=== PATIENT | female | born 2000 | race Caucasian/White ===

== ENCOUNTER 2023-12-01 19:16 | Emergency (ER) | payer OTHER, SELFPAY ==
--- NOTE | 2023-12-01 19:36 | ED_ITS ---
HPI - General Adult General Chief complaint: Abdominal Pain Stated complaint: abd pain Time Seen by Provider: 12/01/23 21:59 Source: patient Mode of arrival: ambulatory History of Present Illness HPI narrative: 23-year-old female who presents with 2 days of mid abdominal discomfort that she states radiates to the right side and she mistook for hunger pains and has been associated with nausea but otherwise no fever, chills or dysuria. Patient reports that she just completed her menstrual cycle. Related Data Previous Rx's Medication Instructions Recorded omeprazole 20 mg capsule,delayed 20 mg PO DAILY #30 caps 12/01/23 release Allergies Allergy/AdvReac Type Severity Reaction Status Date / Time No Known Allergies Allergy Verified 12/01/23 19:36 Review of Systems 2 Review of Systems: Pertinent positives and negatives as stated in HPI PMF Past Medical History Source: nursing notes reviewed Social History Social History Advance Directives: No Advance Directives Information Provided: No Physical Exam ED Vital Signs: Vital Signs - 24 hr 12/01/23 19:39 12/01/23 21:46 Temperature 98.1 F 98.1 F Pulse Rate 62 62 Respiratory Rate 17 17 Blood Pressure 102/63 103/66 Pulse Oximetry 98 100 Oxygen Delivery Method Room Air Room Air BMI result Body Mass Index 19.0 VITAL SIGNS: Reviewed. GENERAL: Well developed, well nourished, in no acute distress. HEAD: Normocephalic/atraumatic EYES: PERRLA, EOMI EARS: Ext canals without abnormality NOSE: Nares patent bilateral OROPHARYNX: no oral lesions noted, posterior pharynx clear NECK: Supple, no adenopathy LUNGS: Normal breath sounds. No adventitious sounds or accessory muscle use. SpO2<100> CARDIOVASCULAR: Regular rate and rhythm without noted murmurs ABDOMEN: Soft, minimal discomfort in epigastric mid abdominal area, non- distended with bowel sounds. MUSCULOSKELETAL: No tenderness, deformities, or effusions noted on gross inspection. EXTREMITIES: No cyanosis, clubbing or edema. SKIN: Inspection of the skin reveals no rashes NEUROLOGIC: Alert and oriented x 4. Strength and sensation to light touch were grossly intact x 4. Course Course Course Narrative: This is a rapid medical exam: Additional HPI, ROS, PE not included below will be deferred to primary provider. Patient is a 23-year-old female presenting to the emergency department with complaint of abdominal pain, nausea, and decreased appetite for the past few days. States pain is to mid abdomen and radiates to RLQ. Plan: labs, UA Medical Decision Making Medical Decision Making [facility] Narrative: 23-year-old female with history and clinical presentation, DDX: Dyspepsia, gastritis, UTI, lower clinical suspicion for cholecystitis or appendicitis. Ectopic as an outside possibility. Reviewed all investigations and hematologic indices are negative for leukocytosis or left shift there is a normocytic anemia no thrombocytopenia. Chemistry indices do not demonstrate any FRANCO or electrolyte/liver enzyme derangements. Beta hCG is undetectable and lipase is within normal limits. Urinalysis without evidence of UTI or hematuria. Viral testing negative for influenza/RSV/COVID. Patient will receive a GI cocktail as well as Carafate and I have no clinical suspicion for underlying appendicitis/obstruction or cholecystitis. Patient otherwise appears clinically well and is discharged with a prescription for omeprazole and instructions to follow-up with her primary care doctor. Differential Diagnosis Differential Diagnoses: The differential diagnosis associated with the presentation includes Please see the discussion above Admission/Observation Consideration of admission/observation: Escalation of care including admission/observation considered Please see the discussion above Lab Data [facility] Lab Attestation statement: I reviewed the patient's lab results. Please see the discussion above 12/01/23 20:19 12/01/23 20:20 Labs: Lab Results 12/01/23 12/01/23 12/01/23 Range/Units 20:19 20:20 22:17 WBC 5.4 (4.8-10.8) X10*3/uL RBC 3.83 L (4.20-5.50) X10*6/uL Hgb 11.7 L (12.0-16.0) g/dl Hct 35.9 L (37.0-47.0) % MCV 93.7 (80.0-98.0) fL MCH 30.5 (27.0-33.0) pg MCHC 32.6 (31.0-35.0) g/dl RDW 11.9 (11.0-16.0) % Plt Count 254 (160-400) X10*3/uL MPV 9.1 L (9.4-12.3) fL Immature Gran % (Auto) 0.4 (0.0-0.4) % Neut % (Auto) 55.4 (45-73) % Lymph % (Auto) 36.7 (20-40) % [place] % (Auto) 5.0 (2-11) % Eos % (Auto) 1.9 (0-4) % Baso % (Auto) 0.6 (0-2) % Lymph # (Auto) 2.0 (1.2-4.9) X10*3/uL [place] # (Auto) 0.3 (0.1-1.2) X10*3/uL Eos # (Auto) 0.1 (0.0-0.4) X10*3/uL Baso # (Auto) 0.0 (0.0-0.2) X10*3/uL Abs Immat Gran (auto) 0.02 (0.00-0.03) X10*3/uL Absolute Neuts (auto) 3.0 (2.0-8.3) x10*3/uL Absolute Nucleated RBC 0.000 (0.0-0.012) X10*3/uL Nucleated RBC % (auto) 0.0 (0.0-0.2) /100WBC Sodium 141 (135-145) mmol/L Potassium 3.9 (3.3-5.1) mmol/L Chloride 111 H (96-108) mmol/L Carbon Dioxide 24 (22-29) mmol/L Anion Gap 10 L (12-20) BUN 19 H (9-16) mg/dL Creatinine 0.74 (0.5-1.4) mg/dL Estim Creat Clear Calc 83.6 Estimated GFR > 60 Random Glucose 86 (60-115) mg/dL Calcium 9.1 (8.4-10.2) mg/dL Total Bilirubin 0.3 (0.0-1.0) mg/dL AST 15 (5-31) U/L ALT 8 (0-31) U/L Alkaline Phosphatase 38 L (39-117) U/L Total Protein 7.2 (6.5-8.0) g/dL Albumin 4.4 (3.5-5.0) g/dL Lipase 16 (8-78) U/L Beta HCG, Quant < 2 mIU/mL Urine Color Yellow Urine Appearance Clear Urine pH 6.5 (5.0-9.0) Ur Specific [place] 1.025 (1.005-1.025) Urine Protein Negative (Neg-Trace) mg/dL Urine Glucose (UA) Negative (Negative) mg/dL Urine Ketones 15 (Negative) mg/dL Urine Blood Negative (Negative) Urine Nitrite Negative (Negative) Ur Leukocyte Esterase Trace H (Negative) Urine RBC 0-2 (0-2) /HPF Urine WBC 0-5 (0-5) /HPF Ur Squamous Epith Cells 6-10 (0-2) /HPF Urine Bacteria Trace (None Seen) Hyaline Casts 0-2 (0-2) /LPF Influenza Type A (PCR) NEGATIVE (Negative) Influenza Type B (PCR) NEGATIVE (Negative) RSV RNA Qual (PCR) NEGATIVE (Negative) SARS-CoV-2 RNA (RT-PCR) NEGATIVE (Negative) Discharge Plan Discharge Clinical Impression: Gastritis Patient Disposition: Home, Self-Care Instructions: Gastritis (ED), Diet for Stomach Ulcers and Gastritis (ED) Additional Instructions: Follow-up with your primary care doctor in the next 3-4 days. Prescriptions: New omeprazole 20 mg capsule,delayed release(DR/EC) 20 mg PO DAILY Qty: 30 0RF
[2023-12-01 19:39] VITALS: BP 102/63; PULSE 62; RESP 17; TEMP 36.7; O2SAT 98; BMI 19.0
[2023-12-01 20:24] LABS: MANUAL DIFF FLAG NO
[2023-12-01 20:25] LABS: Basophils Percent Auto 0.6 % (0-2); Eosinophils Absolute Auto 0.1 X10*3/uL (0.0-0.4); Eosinophils Percent Auto 1.9 % (0-4); Hematocrit 35.9 % (37.0-47.0); Hemoglobin 11.7 g/dl (12.0-16.0); Imm Gran Abs Auto 0.02 X10*3/uL (0.00-0.03); Imm Gran Pct Auto 0.4 % (0.0-0.4); Lymphocytes Percent Auto 36.7 % (20-40); Mean Corpuscular HGB Conc 32.6 g/dl (31.0-35.0); Mean Corpuscular Hemoglobin 30.5 pg (27.0-33.0); Mean Corpuscular Volume 93.7 fL (80.0-98.0); Mean Platelet Volume 9.1 fL (9.4-12.3); Monocytes Absolute Auto 0.3 X10*3/uL (0.1-1.2); Neutrophils Percent Auto 55.4 % (45-73); Platelet Count 254 X10*3/uL (160-400); Red Blood Count 3.83 X10*6/uL (4.20-5.50); Red Cell Distribution Width 11.9 % (11.0-16.0); White Blood Count 5.4 X10*3/uL (4.8-10.8)
[2023-12-01 20:45] LABS: Alanine Aminotransferase 8 U/L (0-31); Albumin Level 4.4 g/dL (3.5-5.0); Alkaline Phosphatase 38 U/L (39-117); Anion Gap 10 (12-20); Aspartate Amino Transferase 15 U/L (5-31); Bilirubin Total 0.3 mg/dL (0.0-1.0); Blood Urea Nitrogen 19 mg/dL (9-16); Calcium 9.1 mg/dL (8.4-10.2); Carbon Dioxide 24 mmol/L (22-29); Chloride 111 mmol/L (96-108); Creatinine Clr Calc Pharmacy 83.6; Estimated Glomerular Filt Rate > 60; Glucose Random 86 mg/dL (60-115); Lipase 16 U/L (8-78); Potassium 3.9 mmol/L (3.3-5.1); Sodium 141 mmol/L (135-145); Total Protein 7.2 g/dL (6.5-8.0)
[2023-12-01 20:46] LABS: HCG Quantitative < 2 mIU/mL
[2023-12-01 21:01] LABS: Influenza A PCR NEGATIVE (Negative); Influenza B PCR NEGATIVE (Negative); Resp Syncy Virus RNA Qual PCR NEGATIVE (Negative); SARS COV2 PCR INHOUSE NEGATIVE (Negative)
[2023-12-01 21:46] VITALS: BP 103/66; PULSE 62; RESP 17; TEMP 36.7; O2SAT 100
[2023-12-01 22:25] LABS: Appearance Urine Clear; Color Urine Yellow; Glucose Urine UA Negative (Negative); Leukocyte Esterase Urine Trace (Negative); Nitrite Urine Negative (Negative); PH 6.5 (5.0-9.0); Specific Gravity - Urine 1.025 (1.005-1.025); UMIC TRIGGER UACC YES; Urine Blood Negative (Negative); Urine Ketones 15 mg/dL (Negative); Urine Protein Negative (Neg-Trace)
[2023-12-01 22:38] LABS: Bacteria Urine Trace (None Seen); Hyaline Casts Urine 0-2 /LPF (0-2); RBC Urine 0-2 /HPF (0-2); WBC Urine 0-5 /HPF (0-5)
[2023-12-01 23:16] VITALS: BP 100/55; PULSE 57; RESP 18; O2SAT 98
[2023-12-01] MEDS: Lidocaine HCl Viscous 2 % 15 ML SOLUTION 10 ML MUCOUS MEM (23:18)
[2023-12-01] MEDS: Sucralfate Oral Suspension 1 GM/10 ML ORAL.SUSP PO (23:18)
[2023-12-01] MEDS: Magnesium Hydrox/Alum Hydrox 30 ML ORAL.SUSP PO (23:18)
[2023-12-01] MEDS: Acetaminophen 325 MG TABLET 975 MG PO (23:18)
== END 2023-12-01 23:39 | disposition home or self-care (01) ==
PROVIDERS: Registered Nurse Emergency; Emergency Provider Student in an Organized Health Care Education/Training Program
DX: K29.70 Gastritis, unspecified, without bleeding (principal); Z11.52 Encounter for screening for COVID-19; Z20.822 Contact with and (suspected) exposure to COVID-19; Z79.899 Other long term (current) drug therapy
CPT/HCPCS: 0241U; 36415; 80053; 81001; 83690; 84702; 85025; 99283; 99284

== ENCOUNTER 2024-01-03 19:48 | Emergency (ER) | payer OTHER, SELFPAY ==
[2024-01-03] VITALS (7 sets, daily range): BP systolic 90–136; BP diastolic 43–70; PULSE 77–119; RESP 15–23; TEMP 36.7; O2SAT 94–99; BMI 22.1; BMI 16.8
--- NOTE | 2024-01-03 19:59 | ED_ITS ---
HPI - Altered Mental Status General Chief Complaint: ETOH/Substance Use Stated Complaint: etoh Time Seen by Provider: 01/03/24 19:54 History of Present Illness HPI narrative: It into a 23-year-old female police was called to the scene for agitation. Patient extremely belligerent. Cursing yelling screaming. Non consolable. Unable to deescalate the situation. Sent in by PD for further evaluation. Related Data Previous Rx's Medication Instructions Recorded omeprazole 20 mg capsule,delayed 20 mg PO DAILY #30 caps 12/01/23 release Allergies Allergy/AdvReac Type Severity Reaction Status Date / Time shellfish derived Allergy Unknown Verified 01/03/24 20:04 Review of Systems 2 Review of Systems: Positive EtOH positive agitation unable to give detailed review of systems PMFSH Past Medical History Attestation statement: The following information was validated with the patient. Social History Social History Unable to assess alcohol history related to: Refusing to respond Alcohol intake: current Use of substances other than those prescribed or required for medical reasons: Refusing to respond Substance Use Type: Marijuana Advance Directives: No Advance Directives Information Provided: No Physical Exam ED Vital Signs: Vital Signs - 24 hr 01/03/24 19:57 01/03/24 20:05 01/03/24 20:31 Temperature 98.1 F Pulse Rate 79 119 H 88 Respiratory Rate 20 15 23 H Blood Pressure 94/46 L 136/62 101/47 L Pulse Oximetry 94 99 94 Oxygen Delivery Method Room Air Room Air Room Air 01/03/24 20:52 01/03/24 21:06 01/03/24 22:06 Temperature Pulse Rate 85 77 82 Respiratory Rate 22 H 20 19 Blood Pressure 90/43 L 99/53 L 100/61 Pulse Oximetry 96 97 99 Oxygen Delivery Method Room Air Room Air Room Air BMI result Body Mass Index 16.8 Appearance: Awake alert extremely agitated moving arm and leg Eyes: Pupils equal, round and reactive to light. ENT: Pharynx normal. Neck: Normal inspection. Neck supple. No lymph nodes noted. No crepitus CVS: Normal heart rate and rhythm. Pulses normal. Normal S1 and S2 Respiratory: No respiratory distress. Breath sounds normal. No Wheezing. No rales Abdomen: Soft and nontender. No rigidity. No distention. good BS x4 Skin: Skin warm and dry. Normal skin color. Normal skin turgor. Extremities: No lower extremity edema. Neurovascular intact to all extremities. No Lacerations. No Rash Neuro: Agitated cursing yelling screaming moving all extremities Medications Administered Discontinued Medications Generic Name Dose Route Start Last Admin Trade Name Freq PRN Reason Stop Dose Admin Diphenhydramine HCl 25 mg 01/03/24 19:55 01/03/24 20:00 Diphenhydramine Hcl 50 Mg/Ml Vial IM 01/03/24 19:56 25 mg ONCE ONE Administration Haloperidol Lactate 5 mg 01/03/24 19:55 01/03/24 20:00 Haloperidol Lactate 5 Mg/Ml Vial IM 01/03/24 19:56 5 mg ONCE ONE Administration Sodium Chloride 1,000 mls @ 999 mls/hr 01/03/24 21:00 01/03/24 22:41 Ns IV 01/03/24 22:00 Infused .Q1H1M AD Infusion Sodium Chloride 1,000 mls @ 999 mls/hr 01/03/24 21:15 01/03/24 22:41 Ns IV 01/03/24 22:15 Infused .Q1H1M AD Infusion Lorazepam 2 mg 01/03/24 19:55 01/03/24 20:00 Lorazepam 2 Mg/Ml Vial IM 01/03/24 19:56 2 mg ONCE ONE Administration Medical Decision Making Medical Decision Making [facility] Narrative: 20:00 Attempted to verbally deescalate the situation to no avail. Patient a potential threat to self and to others. Extremely agitated. Was given 5 of Haldol to Ativan along with 25 of Benadryl. Will monitor carefully. Will reassess the situation closely. Labs ordered. Patient's alcohol came back at approximately 200. After observing for proximally 5 hours. Patient now awake alert comfortable. In no distress. Not suicidal not homicidal. Patient is currently under police custody. Will discharge to PD custody. Patient is in stable condition Differential Diagnosis Differential Diagnoses: The differential diagnosis associated with the presentation includes Alcohol intoxication, acute agitation secondary to intoxication. Admission/Observation Consideration of admission/observation: Escalation of care including admission/observation considered Symptom improved dramatically. Patient will be under police custody Lab Data [facility] Lab Attestation statement: I reviewed the patient's lab results. 01/03/24 20:17 01/03/24 20:17 Labs: Lab Results 01/03/24 Range/Units 20:17 WBC 4.3 L (4.8-10.8) X10*3/uL RBC 4.08 L (4.20-5.50) X10*6/uL Hgb 12.0 (12.0-16.0) g/dl Hct 35.9 L (37.0-47.0) % MCV 88.0 (80.0-98.0) fL MCH 29.4 (27.0-33.0) pg MCHC 33.4 (31.0-35.0) g/dl RDW 12.0 (11.0-16.0) % Plt Count 236 (160-400) X10*3/uL MPV 9.3 L (9.4-12.3) fL Immature Gran % (Auto) 0.0 (0.0-0.4) % Neut % (Auto) 42.9 L (45-73) % Lymph % (Auto) 50.6 H (20-40) % [place] % (Auto) 4.6 (2-11) % Eos % (Auto) 1.2 (0-4) % Baso % (Auto) 0.7 (0-2) % Lymph # (Auto) 2.2 (1.2-4.9) X10*3/uL [place] # (Auto) 0.2 (0.1-1.2) X10*3/uL Eos # (Auto) 0.1 (0.0-0.4) X10*3/uL Baso # (Auto) 0.0 (0.0-0.2) X10*3/uL Abs Immat Gran (auto) 0.00 (0.00-0.03) X10*3/uL Absolute Neuts (auto) 1.9 L (2.0-8.3) x10*3/uL Absolute Nucleated RBC 0.000 (0.0-0.012) X10*3/uL Nucleated RBC % (auto) 0.0 (0.0-0.2) /100WBC Sodium 145 (135-145) mmol/L Potassium 3.2 L (3.3-5.1) mmol/L Chloride 117 H (96-108) mmol/L Carbon Dioxide 17 L (22-29) mmol/L Anion Gap 14 (12-20) BUN 10 (9-16) mg/dL Creatinine 0.57 (0.5-1.4) mg/dL Estim Creat Clear Calc 102.6 Estimated GFR > 60 Random Glucose 89 (60-115) mg/dL Calcium 8.9 (8.4-10.2) mg/dL Total Bilirubin 0.2 (0.0-1.0) mg/dL Direct Bilirubin < 0.2 (0.0-0.5) mg/dL AST 31 (5-31) U/L ALT 21 (0-31) U/L Alkaline Phosphatase 32 L (39-117) U/L Total Protein 7.0 (6.5-8.0) g/dL Albumin 4.3 (3.5-5.0) g/dL Beta HCG, Quant < 2 mIU/mL Ethyl Alcohol 215 mg/dL Discharge Plan Discharge Clinical Impression: Alcoholic intoxication Patient Disposition: Home, Self-Care Instructions: Abuse of Alcohol (ED) Additional Instructions: Patient discharged to the care of police. Will have patient follow-up on an outpatient basis. Prescriptions: No Action omeprazole 20 mg capsule,delayed release(DR/EC) 20 mg PO DAILY Qty: 30 0RF Referrals: Physician,José J [Primary Care Provider] - 01/06/24
[2024-01-03] MEDS: diphenhydrAMINE HCL 50 MG/ML VIAL 25 MG IM (20:00)
[2024-01-03] MEDS: LORazepam 2 MG/ML VIAL IM (20:00)
[2024-01-03] MEDS: Haloperidol Lactate 5 MG/ML VIAL IM (20:00)
[2024-01-03 20:23] LABS: MANUAL DIFF FLAG NO
[2024-01-03 20:32] LABS: Basophils Percent Auto 0.7 % (0-2); Eosinophils Absolute Auto 0.1 X10*3/uL (0.0-0.4); Eosinophils Percent Auto 1.2 % (0-4); Hematocrit 35.9 % (37.0-47.0); Lymphocytes Absolute Auto 2.2 X10*3/uL (1.2-4.9); Lymphocytes Percent Auto 50.6 % (20-40); Mean Corpuscular HGB Conc 33.4 g/dl (31.0-35.0); Mean Corpuscular Hemoglobin 29.4 pg (27.0-33.0); Mean Platelet Volume 9.3 fL (9.4-12.3); Monocytes Absolute Auto 0.2 X10*3/uL (0.1-1.2); Monocytes Percent Auto 4.6 % (2-11); Neutrophils Absolute Auto 1.9 x10*3/uL (2.0-8.3); Neutrophils Percent Auto 42.9 % (45-73); Platelet Count 236 X10*3/uL (160-400); Red Blood Count 4.08 X10*6/uL (4.20-5.50); White Blood Count 4.3 X10*3/uL (4.8-10.8)
--- NOTE | 2024-01-03 20:35 | PC.NURSE ---
[facility] defered at this time, pt acutely agitated on arrival, refusing to answer questions, appears currently intoxicated.
--- NOTE | 2024-01-03 20:38 | PC.NURSE ---
Per Willis Marquez, pt endorsed using crack/cocaine, denies smoking cigarettes.
[2024-01-03 20:45] LABS: Alanine Aminotransferase 21 U/L (0-31); Albumin Level 4.3 g/dL (3.5-5.0); Alkaline Phosphatase 32 U/L (39-117); Anion Gap 14 (12-20); Aspartate Amino Transferase 31 U/L (5-31); Bilirubin Direct < 0.2 mg/dL (0.0-0.5); Bilirubin Total 0.2 mg/dL (0.0-1.0); Blood Urea Nitrogen 10 mg/dL (9-16); Calcium 8.9 mg/dL (8.4-10.2); Carbon Dioxide 17 mmol/L (22-29); Chloride 117 mmol/L (96-108); Creatinine Clr Calc Pharmacy 102.6; Estimated Glomerular Filt Rate > 60; Ethanol 215 mg/dL; Glucose Random 89 mg/dL (60-115); Potassium 3.2 mmol/L (3.3-5.1); Sodium 145 mmol/L (135-145)
[2024-01-03 20:46] LABS: HCG Quantitative < 2 mIU/mL
[2024-01-03] MEDS: 0.9 % Sodium Chloride 1,000 ML 999 ML IV ×2 (21:01→21:20)
[2024-01-04 00:55] VITALS: BP 103/64; PULSE 78; RESP 12; TEMP 36.8; O2SAT 97
== END 2024-01-04 01:16 | disposition home or self-care (01) ==
PROVIDERS: Emergency Provider Emergency Medicine Emergency Medical Services
DX: F10.129 Alcohol abuse with intoxication, unspecified (principal); Y90.7 Blood alcohol level of 200-239 mg/100 ml
CPT/HCPCS: 36415; 80048; 80076; 80307; 84702; 85025; 96360; 96361; 96372; 99285; J1200; J1630; J2060